=== PATIENT | female | born 1975 | race African-American/Black ===

== ENCOUNTER 2019-06-26 06:52 | Day surgery (SDC) | payer BC ==
[2019-06-25 10:04] VITALS: BMI 37.8
[2019-06-26] MEDS ORDERED: Levofloxacin 500 mg/D5W 100 ml Premix Bag ONE (07:28)
[2019-06-26] MEDS ORDERED: Acetaminophen 500 MG TAB ONE (07:29)
[2019-06-26 08:04] LABS: #Basophils 0.1 thou/uL (0.0-0.2); #Eosinphils 0.2 thou/uL (0.0-0.7); #Lymphocytes 3.7 thou/uL (1.20-3.40); #Monocytes 0.6 thou/uL (0.11-0.59); #Neutrophils 3.9 thou/uL (1.40-6.50); %Basophils 1.3 % (0.0-1.0); %Eosinophils 2.5 % (0.0-10.0); %Lymphocytes 43.7 % (21.0-51.0); %Monocytes 6.8 % (0.0-10.0); %Neutrophils 45.6 % (42.0-75.0); Hemoglobin 11.7 g/dL (12.0-16.0); Mean Corpuscular HGB CONC 32.3 g/dL (32.0-36.0); Mean Corpuscular Volume 83.5 fL (78.0-98.0); Mean Platelet Volume 6.6 fL (7.4-10.4); Platelet Count 441 thou/uL (130-400); RBC Distribution Width 14.3 % (11.5-14.5); Red Blood Cell (RBC) Count 4.36 mill/uL (4.20-5.40); White Blood Cell (WBC) Count 8.5 thou/uL (4.8-10.8)
[2019-06-26 08:18] LABS: Anion Gap 14 mmol/L (10-20); BUN (Urea Nitrogen) 16 mg/dL (7.0-18.7); Calc. Creatinine Clearance 123 mL/min (70-130); Calcium 9.8 mg/dL (7.8-10.44); Carbon Dioxide 25 mmol/L (22-29); Chloride 106 mmol/L (98-107); Estimated GFR-MDRD 75; Glucose 116 mg/dL (70-105); Potassium 5.1 mmol/L (3.5-5.1); Sodium 140 mmol/L (136-145)
[2019-06-26] MEDS ORDERED: Lidocaine 1% w/Epinephrine 1:100K 20 ML VIAL ONE (09:05)
[2019-06-26] MEDS ORDERED: Bupivacaine PF 0.5% 30 ML VIAL ONE (09:05)
[2019-06-26] MEDS ORDERED: Fentanyl 100 MCG/2 ML VIAL ONE (09:09)
[2019-06-26] MEDS ORDERED: Midazolam HCl 2 mg/2 ml Vial ONE ×2 (09:09→09:21)
[2019-06-26] MEDS ORDERED: PROPOFOL 200 MG/20 ML VIAL ONE (10:12)
[2019-06-26] MEDS ORDERED: Lidocaine 1% PF 5 ML VIAL ONE (10:12)
[2019-06-26] MEDS ORDERED: Promethazine HCl 25 MG/ML VIAL ONE (11:09)
--- NOTE | 2019-06-26 11:34 | PDOC.OP ---
Operative Note - Operative Note Operative Note: PROCEDURE: Excision of sebaceous cyst from left mid back SURGEON: Juan J Ortiz M.D. DATE: 06/26/2019 PREOPERATIVE DIAGNOSIS: Sebaceous cyst left mid back POSTOPERATIVE DIAGNOSIS: Sebaceous cyst left mid back HISTORY: Patient with sebaceous cyst of her left mid back which has been previously incised and drained for infection. She has a large residual cyst which she would like to have excised. FINDINGS: 3.5 cm ruptured sebaceous cyst PROCEDURE IN DETAIL: After informed consent was obtained and appropriate preoperative antibiotics were administered the patient was taken to the operating room she was placed in supine position and general anesthesia by LMA was administered. She was then positioned in right lateral decubitus position with appropriate support and padding of the extremities. She was prepped and draped in standard sterile fashion and local anesthesia infused the skin and subcutaneous tissues surrounding the cyst. An elliptical vertical incision was made incorporating the I&D site as well as a central punctum. The cyst was dissected free of the surrounding tissues with some difficulty due to rupture. The wound was irrigated and hemostasis obtained using Bovie electrocautery. Additional local anesthesia was infused into the surrounding subcutaneous tissues for postoperative pain control. A subcutaneous flap was mobilized by the skin from the underlying subcutaneous tissues. The subcutaneous tissues were reapproximated with interrupted [id number] Monocryl sutures. The deep dermis was reapproximated with interrupted [id number] Monocryl sutures and the skin was closed with a running subcuticular 4-0 Monocryl suture. Dermabond dressings were applied and once this was dry a compression dressing was placed and secured with tape. The patient was back in the supine position and taken to recovery in good condition. Estimated blood loss was minimal. There were no complications. Specimen is sebaceous cyst of the left mid back.
== END 2019-06-26 13:45 | disposition home or self-care (01) ==
LOC: SDC 06:52
PROVIDERS: ATTEND Surgery
PROC: 0JB70ZZ Excision of Back Subcutaneous Tissue and Fascia, Open Approach (ICD-10-PCS; principal; 2019-06-26)
DX: L72.3 Sebaceous cyst (principal); L02.212 Cutaneous abscess of back [any part, except buttock and flank]; E11.9 Type 2 diabetes mellitus without complications; D64.9 Anemia, unspecified; E66.9 Obesity, unspecified; Z68.37 Body mass index [BMI] 37.0-37.9, adult; Z79.84 Long term (current) use of oral hypoglycemic drugs; Z79.899 Other long term (current) drug therapy; Z88.0 Allergy status to penicillin; Z88.6 Allergy status to analgesic agent
CPT/HCPCS: 36415; 80048; 85025; 88304; J1956; J2001; J2250; J2550; J2704; J3010; S0020